=== PATIENT | female | born 1960 | race Caucasian/White ===

== ENCOUNTER 2017-01-27 23:31 | Emergency (ER) | payer OTHER ==
[2017-01-27 23:39] VITALS: TEMP 98.8
--- NOTE | 2017-01-28 01:21 | CT ---
EXAM: CT Head Without Intravenous Contrast. CLINICAL HISTORY: Reason: Neuro Deficits, left-sided facial droop TECHNIQUE: Axial computed tomography images of the head/brain without intravenous contrast. CTDI is 57.40 mGy and DLP is 1047.10 mGy-cm This CT exam was performed using one or more of the following dose reduction techniques: automated exposure control, adjustment of the mA and/or kV according to patient size, and/or use of iterative reconstruction technique. COMPARISON: None FINDINGS: Brain: No acute infarct or hemorrhage. No extra-axial fluid collection. No mass effect or midline shift. Ventricles and sulci: Normal. No ventriculomegaly or intraventricular hemorrhage. Skull: Possible small osteoma versus small calcified meningioma along the inner surface of the left frontal bone at the vertex. No bony lesion or fracture. Subcutaneous tissues: Possible lipoma in the left occipital/ muscles, partially visualized. Sinuses: Normal. No air-fluid levels or mucosal thickening. Mastoid air cells: Normal. Orbits: Grossly unremarkable. IMPRESSION: No acute intracranial abnormality.
--- NOTE | 2017-01-28 01:27 | XR ---
EXAM: XR Chest, 1 View. CLINICAL HISTORY: Reason: altered mental status TECHNIQUE: Frontal view of the chest. COMPARISON: None FINDINGS: Hardware: None. Lungs/pleura: Bibasilar atelectasis. No focal consolidation. No pleural effusion or pneumothorax. Heart/mediastinum: Normal. No cardiomegaly. Soft tissues: Unremarkable. Bones: No acute fracture. Probable mild calcific tendinosis in bilateral shoulders. Upper abdomen: Normal. IMPRESSION: Bibasilar atelectasis. No focal consolidation or other acute abnormality.
[2017-01-28] MEDS ORDERED: predniSONE 20 MG TAB PO STA (01:34)
[2017-01-28] MEDS ORDERED: valACYclovir 500 MG TAB PO STA (01:34)
--- NOTE | 2017-01-28 01:39 | ED ---
Neuro HPI - General Chief Complaint: Neuro Symptoms/Deficit Stated Complaint: L Side Facial Paralysis Time Seen by Provider: 01/27/17 23:44 Source: patient Mode of arrival: wheelchair Limitations: no limitations - History of Present Illness Is the patient presenting with stroke symptoms?: No Last Known Well Date: 01/27/17 Last Known Well Time: 21:00 Onset/Timin -: days(s) Initial Comments: This patient is a 56-year-old woman who was in her usual state of health until earlier today. She noticed that the Left side of her face felt funny. This evening things were worse, she was having some eye irritation and felt that she wasn't blinking properly. Finally this evening just after 9 she noticed that it was difficult to drink something because her lips would not close properly around the straw she was using. She checked the Internet and then became concerned she was either having a stroke or that she may have Woo's palsy. The patient denies headache, change in speech or swallowing, change in vision, weakness or numbness of the extremities. Location: right face History of same: No Place: home Severity: moderate Quality: numb Improves With: none Worsens With: none Context: gradual onset Associated Symptoms: denies other symptoms - Related Data Home Medications: Previous Rx's Medication Instructions Recorded Fluconazole [Diflucan] 150 mg PO DAILY #2 tab 01/28/17 predniSONE 60 mg PO DAILY #30 tab 01/28/17 valACYclovir HCL [Valacyclovir] 1,000 mg PO TID #21 tab 01/28/17 Allergies/Adverse Reactions: Allergies Allergy/AdvReac Type Severity Reaction Status Date / Time No Known Allergies Allergy Verified 01/27/17 23:39 Review of Systems ROS Statement: Those systems with pertinent positive or pertinent negative responses have been documented in the HPI. ROS Other: All systems not noted in ROS Statement are negative. Constitutional: Denies: fever, chills Eyes: Reports: as per HPI, other (Eye irritation). Denies: vision change ENT: Denies: ear pain, hearing loss Respiratory: Denies: cough, dyspnea Cardiovascular: Denies: chest pain, syncope Gastrointestinal: Denies: abdominal pain, vomiting, diarrhea Genitourinary: Denies: dysuria, hematuria Musculoskeletal: Denies: back pain Skin: Denies: rash Neurological: Reports: weakness (Facial), numbness (She'll). Denies: headache, confusion, abnormal gait General Exam Limitations: no limitations General appearance: alert, in no apparent distress Head exam: Present: atraumatic, normocephalic Eye exam: Present: PERRL, EOMI. Absent: scleral icterus, conjunctival injection , periorbital swelling, periorbital tenderness ENT exam: Present: normal oropharynx, other (There is left facial droop and also left upper facial weakness.) Neck exam: Present: normal inspection, full ROM. Absent: tenderness, meningismus Respiratory exam: Present: normal lung sounds bilaterally. Absent: respiratory distress, wheezes, rales, rhonchi, stridor Cardiovascular Exam: Present: regular rate, normal rhythm, normal heart sounds. Absent: systolic murmur, diastolic murmur, rubs, gallop GI/Abdominal exam: Present: soft. Absent: distended, tenderness, guarding, rebound Extremities exam: Present: normal inspection. Absent: pedal edema, calf tenderness Neurological exam: Present: alert, oriented X3, normal gait. Absent: CN II-XII intact (Left-sided facial weakness affecting both the upper and lower face.), motor sensory deficit Skin exam: Present: warm, dry, intact, normal color. Absent: rash Past Medical History Past Medical History: No Reported History History of Any Multi-Drug Resistant Organisms: None Reported Past Surgical History: Cholecystectomy, Tubal Ligation Past Psychological History: No Psychological Hx Reported Smoking Status: Current every day smoker Past Alcohol Use History: None Reported Past Drug Use History: None Reported Course Vital Signs 01/27/17 01/28/17 23:34 01:56 Temperature 98.8 F Pulse Rate 74 88 Respiratory 18 16 Rate Blood Pressure 201/84 160/87 O2 Sat by Pulse 97 98 Oximetry Disposition Clinical Impression: Woo's palsy Disposition: HOME SELF-CARE Condition: Fair Instructions: Woo Palsy (ED) Prescriptions: Fluconazole [Diflucan] 150 mg PO DAILY #2 tab predniSONE 60 mg PO DAILY #30 tab valACYclovir HCL [Valacyclovir] 1,000 mg PO TID #21 tab Referrals: Nivia Pires DO [Primary Care Provider] - 1-2 days
[2017-01-28 01:56] VITALS: BP 160/87; PULSE 88; RESP 16
== END 2017-01-28 01:56 | disposition home or self-care (01) ==
LOC: EC 23:31
DX: G51.0 Bell's palsy (principal); F17.200 Nicotine dependence, unspecified, uncomplicated
CPT/HCPCS: 71010; 70450; 99284; J7512

== ENCOUNTER → 2025-03-24 | Outpatient (CLI) | payer OTHER ==
--- NOTE | 2025-03-24 15:36 | US ---
EXAMINATION TYPE: US mass soft tissue chest/back DATE OF EXAM: 03/24/2025 COMPARISON: NONE CLINICAL INDICATION: Female, 64 years old with history of LO2.91 ABSCESS; Palpable mid upper back harinder t has been there x years. Patient states she would have her daughter drain it. TECHNIQUE: Sonographic images taken. FINDINGS: Patients area of concern scanned. Subdermal nonvascular lesion = 3.1 x 2.7 x 1.9 cm The area is fairly well-defined with increased through transmission. IMPRESSION: As above, suspect a dermatologic etiology given the sonographic appearance and clinical history. CT or MRI follow-up may be beneficial to further evaluate if desired. [facility], , 03/24/2025 3:34 PM
--- NOTE | 2025-03-28 07:08 | MM ---
Reason for Exam: Screening (asymptomatic). Last mammogram was performed 14 year(s) and 11 month(s) ago. Patient History: Menarche at age 16. First Full-Term at age 18. Risk Values: Amy 5 year model risk: 1.1%. NCI Lifetime model risk: 4.3%. Prior Study Comparison: 07/05/2008 Bilateral Screening Mammogram, [facility]. 05/14/2010 Bilateral Screening Mammogram, [facility]. Tissue Density: There are scattered areas of fibroglandular density. Findings: Analyzed By CAD. Benign-appearing bilateral axillary lymph nodes are present. There is no suspicious group of microcalcifications or new suspicious mass in either breast. Overall Assessment: Negative, BI-RAD 1 Management: Screening Mammogram of both breasts in 1 year. . Patient should continue monthly self-breast exams. A clinical breast exam by your physician is recommended on an annual basis. This exam should not preclude additional follow-up of suspicious palpable abnormalities. Note on Amy scores and lifetime risk: 1. A Amy score greater than 3% is considered moderate risk. If this is the case, consider specialist referral to assess eligibility for a risk reducing agent. 2. If overall lifetime risk for the development of breast cancer is 20% or higher, the patient may qualify for future screening with alternating mammogram and breast MRI. [facility], , 03/28/2025 7:05 AM. Electronically signed and approved by: Prabhu Dillon M.D.
== END | disposition home or self-care (01) ==
LOC: RADUSWWP 14:32
PROVIDERS: ATTEND Student in an Organized Health Care Education/Training Program
DX: Z12.31 Encounter for screening mammogram for malignant neoplasm of breast (principal); L02.91 Cutaneous abscess, unspecified; R92.323 Mammographic fibroglandular density, bilateral breasts
CPT/HCPCS: 77063; 77067

== ENCOUNTER → 2025-05-06 | Outpatient (CLI) | payer OTHER ==
--- NOTE | 2025-05-06 13:01 | CA ---
Transthoracic Echo Report Name: Shanthi Dean Age: 64 Gender: F : 1960 Exam Date: 05/06/2025 11:04 Exam Location: [facility] Ht (in): 65 Wt (lb): 243 Ordering Physician: Alfred Carranza DO Attending/Referring Phys: [employer] Counselor Katelyn Saldana RDCS Procedure CPT: Indications: Murmur Cardiac Hx: Technical Quality: Fair Contrast 1: Total Dose (mL): Contrast 2: Total Dose (mL): MEASUREMENTS (Male / Female) Normal Values 2D ECHO LV Diastolic Diameter PLAX 4.3 cm 4.2 - 5.9 / 3.9 - 5.3 cm LV Systolic Diameter PLAX 2.6 cm IVS Diastolic Thickness 1.3 cm 0.6 - 1.0 / 0.6 - 0.9 cm LVPW Diastolic Thickness 1.5 cm 0.6 - 1.0 / 0.6 - 0.9 cm LV Relative Wall Thickness 0.6 RV Internal Dim ED PLAX 2.0 cm LVOT Diameter 2.1 cm LA Systolic Diameter LX 3.1 cm 3.0 - 4.0 / 2.7 - 3.8 cm LV Diastolic Volume MOD BP 53.5 cm??? 67 - 155 / 56 - 104 cm??? LV Systolic Volume MOD BP 20.4 cm??? - 58 / 19 - 49 cm??? LV Ejection Fraction MOD BP 61.8 % >= 55 % LV Cardiac Index MOD BP 1046.8 cm???/min???m??? LV Diastolic Volume MOD 4C 54.0 cm??? LV Systolic Volume MOD 4C 19.0 cm??? LV Ejection Fraction MOD 4C 64.8 % LV Cardiac Index MOD 4C 1108.8 cm???/min???m??? LV Diastolic Length 4C 7.7 cm LV Systolic Length 4C 5.7 cm LV Diastolic Volume MOD 2C 50.6 cm??? LV Systolic Volume MOD 2C 20.3 cm??? LV Ejection Fraction MOD 2C 59.9 % LV Cardiac Index MOD 2C 961.1 cm???/min???m??? LV Diastolic Length 2C 7.3 cm LV Systolic Length 2C 6.3 cm LA Volume 71.5 cm??? 18 - 58 / 22 - 52 cm??? LA Volume Index 31.0 cm???/m??? 16 - 28 cm???/m??? M-MODE Aortic Root Diameter MM 2.9 cm LA Systolic Diameter MM 3.6 cm LA Ao Ratio MM 1.3 AV Cusp Separation MM 1.9 cm DOPPLER AV Peak Velocity 167.0 cm/s AV Peak Gradient 11.2 mmHg MV Area PHT 2.8 cm??? Mitral E Point Velocity 91.0 cm/s Mitral A Point Velocity 98.1 cm/s Mitral E to A Ratio 0.9 MV Deceleration Time 274.1 ms FINDINGS Left Ventricle Left ventricular ejection fraction is estimated at 55-60%. Moderately increased septal wall thickness. Moderately increased posterior wall thickness. Normal left ventricular systolic function with no obvious regional wall motion abnormalities. Left ventricular cavity size normal. Right Ventricle Normal right ventricular size and function. Right ventricular systolic pressure within normal limits. Right Atrium Normal right atrial size. Left Atrium Mildly increased left atrial volume. Mildly increased left atrial area. Mitral Valve Structurally normal mitral valve. Trace mitral regurgitation. No mitral stenosis. Aortic Valve Trileaflet aortic valve. No aortic stenosis. Trace aortic regurgitation. Tricuspid Valve Structurally normal tricuspid valve. No tricuspid stenosis. Trace tricuspid regurgitation. Pulmonic Valve Structurally normal pulmonic valve. Trace pulmonic regurgitation. No pulmonic stenosis. Pericardium No pericardial or pleural effusion. Aorta Normal size aortic root and proximal ascending aorta. CONCLUSIONS Normal biventricular systolic function Normal pulmonary artery systolic pressure No significant valvular abnormalities noted No pericardial effusion Previewed by: Dr. Jacoby Cho MD (Electronically Signed) Final Date: 06 May 2025 13:00
== END | disposition home or self-care (01) ==
LOC: RADECHMAIN 10:58
PROVIDERS: ATTEND Student in an Organized Health Care Education/Training Program
DX: I07.1 Rheumatic tricuspid insufficiency (principal); R01.1 Cardiac murmur, unspecified
CPT/HCPCS: 93306